=== PATIENT | female | born 1990 | race Two or more races ===

== ENCOUNTER 2018-12-27 00:45 | Emergency (ER) | payer MEDICAID ==
[~2018-12-27] VITALS: Ht 162.6 cm; Wt 77.1 kg
--- NOTE | 2018-12-27 00:50 | NUR ---
TO BED 16 AMBULATORY C/O ABDOMINAL PAIN WITH MODERATE VAGINAL BLEEDING. PT REPORTS 1 MONTH . G3, P2. PT AAOX4 NO ACUTE DISTRESS NOTED, RESP EVEN AND UNLABORED. URINE SAMPLE COLLECTED AND SENT TO LAB.
[2018-12-27 01:19] LABS: APPEARANCE,URINE SL CLOUDY (CLEAR); BILIRUBIN,URINE NEGATIVE (NEGATIVE); BLOOD, URINE 3+ Ery/uL (NEGATIVE); COLOR,URINE YELLOW (YELLOW); KETONES,URINE TRACE (NEGATIVE); LEUKOCYTE ESTERASE ,URINE TRACE (NEGATIVE); NITRITE, URINE NEGATIVE (NEGATIVE); PH,URINE 6.5 (5.0-8.0); PROTEIN,URINE 1+ mg/dl (NEGATIVE); UGLUCOSE NEGATIVE (NEGATIVE)
[2018-12-27 01:31] LABS: BACTERIA,URINE None seen /HPF (None Seen); RBC,URINE 51-80 /HPF (0-2); SQUAMOUS EPITHELIAL CELL,UR Few /HPF (None Seen)
--- NOTE | 2018-12-27 01:43 | NUR ---
PHLEB AT BEDSIDE FOR LAB DRAW
[2018-12-27 01:57] LABS: BASOPHILS # (AUTO) 0.1 /CMM (0.0-0.2); BASOPHILS % (AUTO) 0.6 % (0.0-2.0); EOSINOPHILS % (AUTO) 0.9 % (0.0-6.0); HEMATOCRIT 35 % (33-45); HEMOGLOBIN 11.7 g/dL (11.5-14.8); LYMPHOCYTES # (AUTO) 2.6 /CMM (0.8-4.8); LYMPHOCYTES % (AUTO) 22.9 % (20.0-44.0); MEAN CORPUSCULAR HGB CONC 33 g/dl (31.0-36.0); MEAN CORPUSCULAR VOLUME 95 fL (82-100); MONOCYTES # (AUTO) 0.4 /CMM (0.1-1.30); MONOCYTES % (AUTO) 3.8 % (2.0-12.0); NEUTROPHILS # (AUTO) 8.1 /CMM (1.8-8.9); NEUTROPHILS % (AUTO) 71.8 % (43.0-81.0); PLATELET COUNT (AUTO) 257 /CMM (150-450); WHITE BLOOD COUNT (AUTO) 11.2 K/uL (4.3-11.0)
[2018-12-27 02:43] VITALS: BP 117/71
--- NOTE | 2018-12-27 02:57 | NUR ---
PT AMBULATED TO RESTROOM WITH STEADY GAIT.
--- NOTE | 2018-12-27 03:32 | NUR ---
Patient discharged to home in stable condition. Written and verbal after care instructions given. Patient verbalizes understanding of instruction. PT AMBULATORY WITH STEADY GAIT.
== END 2018-12-27 03:34 | disposition home or self-care (01) ==
LOC: ER 00:50
DX: O20.0 Threatened abortion (principal); Z3A.01 Less than 8 weeks gestation of pregnancy
CPT/HCPCS: 36415; 76856-TC; 81000-TC; 84702-TC; 84703-TC; 85025-TC; 86850-TC; 87086-TC

== ENCOUNTER 2025-03-03 12:10 | Emergency (ER) | payer MEDICAID, OTHER ==
[~2025-03-03] VITALS: Ht 165.1 cm; Wt 81.6 kg
[2025-03-03] MEDS: KETOROLAC TROMETHAMINE INJ 30 MG/ML VIAL IM ONE (13:00)
[2025-03-03] MEDS ORDERED: LIDOCAINE 5% (PATCH) 1 EA PATCH TP ONE (13:59)
[2025-03-03] MEDS ORDERED: CYCLOBENZAPRINE 10 MG TABLET ONE (14:00)
[2025-03-03] MEDS: CYCLOBENZAPRINE 10 MG TABLET PO ONE (14:00)
[2025-03-03] MEDS: LIDOCAINE 5% (PATCH) 1 EA PATCH TP SCH (14:04)
[2025-03-03] MEDS ORDERED: CYCL5TAB PO (14:22)
[2025-03-03] MEDS ORDERED: IBUP-1490 PO (14:23)
[2025-03-03 14:41] VITALS: BP 109/70; TEMP 98.5; O2SAT 100
== END 2025-03-03 14:42 | disposition home or self-care (01) ==
LOC: ER 12:29
DX: M62.838 Other muscle spasm (principal); R51.9 Headache, unspecified
CPT/HCPCS: 70450-TC